=== PATIENT | male | born 1965 | race Caucasian/White ===

== ENCOUNTER 2023-02-20 10:39 | Outpatient (AMB) | payer OTHER, SELFPAY ==
[2023-02-20 10:45] VITALS: BP 132/70; PULSE 92; O2SAT 98; BMI 27.5
--- NOTE | 2023-02-20 10:45 | MHC.OFFVIS ---
Intake Vital Signs 02/20/23 10:45 Height 5 ft 9 in Weight 186 lb BMI 27.5 BP 132/70 Blood Pressure Location Lt brachial Position Sitting Pulse 92 Pulse Source Pulse Oximeter Pulse Oximetry (%) 98 Oxygen Delivery Method Room Air Comment 2 Liters Oxygen Intake Visit Reasons: Pulmonary nodule Inspector Returned Materials Required: No Allergies nicotine Adverse Reaction (Severe, Verified 02/20/23 10:50) Rash Penicillins Adverse Reaction (Severe, Verified 02/20/23 10:50) Rash HPI HPI Comments History of Present Illness Details The patient is here for pulmonary evaluation. The patient is a 57-year-old gentleman with known emphysema COPD chronic respiratory failure on oxygen who is currently at a rehabilitation facility here at [place]. Apparently she was evaluated at [facility] and was treated there for many months. Normal recently developed another COPD exacerbation and respiratory infection and was evaluated at [facility]. January 31 he did undergo a chest x-ray demonstrating some lucencies in a left-sided pulmonary nodule measuring 1.7 cm in size. Therefore he did undergo a CT scan of the chest on January 31 2023. I personally reviewed ass the images. It demonstrated a 1.1 x 8 mm spiculated nodule in the left side concerning for malignant process. Patient also has extensive emphysema. The patient needs to undergo a PET scan and PFTs. [facility] Medical History (Updated 02/20/23 @ 20:27 by Armin Nagy MD) Chronic respiratory failure COPD (chronic obstructive pulmonary disease) Emphysema lung Pulmonary nodule Social History (Updated 02/20/23 @ 11:18 by MIREYA Jean Baptiste) Patient Tobacco Use Status: Current everyday Tobacco user Tobacco use type: Cigarette Review of Systems Const Reports fatigue and Denies fever(s) Eyes Denies change in vision Card Denies chest pain and Reports dyspnea on exertion Resp Reports cough, Denies hemoptysis, Reports dyspnea on exertion and Reports wheezing GI Reports no additional complaints Musc Reports no additional complaints Skin/Breast Denies rash Neuro Reports no additional complaints Endo Reports fatigue Panchito/Lymph Denies easy bleeding Aller/Immun Reports wheezing Physical Exam Vital Signs: Last Vital Signs Pulse 92 02/20/23 10:45 BP 132/70 02/20/23 10:45 Pulse Ox 98 02/20/23 10:45 Oxygen Delivery Method Room Air 02/20/23 10:45 BMI result Body Mass Index 27.5 Const General: comfortable and tired appearing HEENT Head: Yes normocephalic Neck Neck: Yes supple Chest Chest palpation & inspection: normal inspection of the chest Resp Effort & Inspection: normal respiratory effort and prolonged expiratory phase Auscultation: diminished lung sounds Cardio Rate: regular rate Rhythm: regular rhythm Heart sounds: S1 normal heart sound present and S2 normal heart sound present GI Palpation (GI): Soft to palpation Skin General skin exam: no rashes or lesions noted Extrem General: No clubbing Results Reviewed Results Reviewed: Assessment & Plan Assessment & Plan (1) Pulmonary nodule: Code(s): R91.1 - Solitary pulmonary nodule (2) Emphysema lung: Code(s): J43.9 - Emphysema, unspecified Qualifiers: Emphysema type: centrilobular Qualified Code(s): J43.2 - Centrilobular emphysema (3) COPD (chronic obstructive pulmonary disease): Code(s): J44.9 - Chronic obstructive pulmonary disease, unspecified Qualifiers: COPD type: emphysema Emphysema type: centrilobular Qualified Code(s): J43.2 - Centrilobular emphysema (4) Chronic respiratory failure: Code(s): J96.10 - Chronic respiratory failure, unspecified whether with hypoxia or hypercapnia Qualifiers: Respiratory failure complication: hypoxia Qualified Code(s): J96.11 - Chronic respiratory failure with hypoxia Plan PET scan to assess concerning nodule PFTs continue oxygen supplementation continue respiratory therapy F/U 4-6 weeks Orders: Orders PET CT fusion skull to thigh Today R91.1 - Solitary pulmonary nodule PFT pulmonary function test Today R91.1 - Solitary pulmonary nodule Coding Level of Care Code New Pt Level 5 (45384) Diagnoses Pulmonary nodule R91.1 Emphysema lung J43.2 Emphysema type: centrilobular COPD (chronic obstructive pulmonary disease) J43.2 COPD type: emphysema Emphysema type: centrilobular Chronic respiratory failure J96.11 Respiratory failure complication: hypoxia Time Spent (min) 60
== END 2023-02-20 10:57 | disposition home or self-care (01) ==
PROVIDERS: PCP Emergency Medicine; Visit Provider Hospitalist
DX: R91.1 Solitary pulmonary nodule (principal); J43.2 Centrilobular emphysema; J96.11 Chronic respiratory failure with hypoxia
CPT/HCPCS: 99205

== ENCOUNTER → 2023-02-20 10:39 | Outpatient (BNVA) | payer OTHER, SELFPAY | PROVIDERS: PCP Emergency Medicine; Visit Provider Hospitalist | DX: R91.1 Solitary pulmonary nodule (principal); J43.2 Centrilobular emphysema; J96.11 Chronic respiratory failure with hypoxia | CPT/HCPCS: 99202 ==

== ENCOUNTER 2023-05-20 13:11 | Outpatient (AMB) | payer OTHER, SELFPAY ==
[2023-05-20 13:23] VITALS: PULSE 89; O2SAT 96; BMI 27.4
--- NOTE | 2023-05-20 13:23 | A.OFFVIS_ITS ---
Intake Vital Signs 05/20/23 13:23 Height 5 ft 9 in Weight 185 lb 10.067 oz BMI 27.4 Pulse 89 Pulse Source Pulse Oximeter Pulse Oximetry (%) 96 Oxygen Delivery Method Room Air Comment 3 Liters Oxygen([facility]) Intake Visit Reasons: Pulmonary Nodule Inspector And Unloader Required: No Allergies nicotine Adverse Reaction (Severe, Verified 05/20/23 13:25) Rash Penicillins Adverse Reaction (Severe, Verified 05/20/23 13:25) Rash HPI HPI Comments History of Present Illness Details The patient is a 57-year-old gentleman with known emphysema COPD chronic respiratory failure on oxygen who is currently at a rehabilitation facility here at [place]. Apparently she was evaluated at [facility] and was treated there for many months. Normal recently developed another COPD exacerbation and respiratory infection and was evaluated at [facility]. January 31 he did undergo a chest x-ray demonstrating some lucencies in a left-sided pulmonary nodule measuring 1.7 cm in size. Therefore he did undergo a CT scan of the chest on January 31 2023. I personally reviewed ass the images. It demonstrated a 1.1 x 8 mm spiculated nodule in the left side concerning for malignant process. Patient also has extensive emphysema. The patient needs to undergo a PET scan and PFTs. 05/20/2023 the patient is here for pulmo luisy follow-up visit. He has yet to get his PET scan. Scheduled for next week. In the meantime he went to [facility] with worsening abdominal discomfort. He does have a significant hernia. He also had worsening respiratory symptoms. Not responding very well to the Breo. Will go ahead and switch him to Trelegy inhaler that he can use daily. In addition to that I do believe that because of his chronic bronchitis responding he will respond well to azithromycin 3 times a week. I will request the starts on the azithromycin at the custodial. He will continue using his oximetry is. Unfortunately his oxygen tank is empty needs to make sure he gets on an oxygen tank once he arrives to the unit. The patient will have the PET scan. The PET scan is abnormal a him come in earlier to discuss the findings and further discuss interventions. [facility] Medical History (Updated 02/20/23 @ 20:27 by Armin Nagy MD) Chronic respiratory failure COPD (chronic obstructive pulmonary disease) Emphysema lung Pulmonary nodule (Updated 02/20/23 @ 11:18 by MIREYA Jean Baptiste) Patient Tobacco Use Status: Current everyday Tobacco user Tobacco use type: Cigarette Review of Systems Const Reports fatigue and Denies fever(s) Eyes Denies change in vision Card Denies chest pain and Reports dyspnea on exertion Resp Reports cough, Denies hemoptysis, Reports dyspnea on exertion and Reports wheezing GI Reports no additional complaints Musc Reports no additional complaints Skin/Breast Denies rash Neuro Reports no additional complaints Endo Reports fatigue Panchito/Lymph Denies easy bleeding Aller/Immun Reports wheezing Physical Exam Vital Signs: Last Vital Signs Pulse 89 05/20/23 13:23 Pulse Ox 96 05/20/23 13:23 Oxygen Delivery Method Room Air 05/20/23 13:23 BMI result Body Mass Index 27.4 Const General: comfortable and tired appearing HEENT Head: Yes normocephalic Neck Neck: Yes supple Chest Chest palpation & inspection: normal inspection of the chest Resp Effort & Inspection: normal respiratory effort and prolonged expiratory phase Auscultation: rhonchi and diminished lung sounds Cardio Rate: regular rate Rhythm: regular rhythm Heart sounds: S1 normal heart sound present and S2 normal heart sound present GI Palpation (GI): Soft to palpation Skin General skin exam: no rashes or lesions noted Extrem General: No clubbing Assessment & Plan Assessment & Plan (1) Pulmonary nodule: Code(s): R91.1 - Solitary pulmonary nodule (2) Emphysema lung: Code(s): J43.9 - Emphysema, unspecified Qualifiers: Emphysema type: centrilobular Qualified Code(s): J43.2 - Centrilobular emphysema (3) COPD (chronic obstructive pulmonary disease): Code(s): J44.9 - Chronic obstructive pulmonary disease, unspecified Qualifiers: COPD type: emphysema Emphysema type: centrilobular Qualified Code(s): J43.2 - Centrilobular emphysema (4) Chronic respiratory failure: Code(s): J96.10 - Chronic respiratory failure, unspecified whether with hypoxia or hypercapnia Qualifiers: Respiratory failure complication: hypoxia Qualified Code(s): J96.11 - Chronic respiratory failure with hypoxia Plan PET scan to assess concerning nodule, schedule for May 29 continue oxygen supplementation 3L/min start Trelegy start Azithromycin 3 times a week (Friday, Friday, Friday Duoneb QID as needed F/U 3-4 months Coding Level of Care Code Est Pt Level 4 (52087) Diagnoses Pulmonary nodule R91.1 Centrilobular emphysema J43.2 Emphysema type: centrilobular Centrilobular emphysema J43.2 COPD type: emphysema Emphysema type: centrilobular Chronic respiratory failure with hypoxia J96.11 Respiratory failure complication: hypoxia Time Spent (min) 16
== END 2023-05-20 13:47 | disposition home or self-care (01) ==
PROVIDERS: PCP Emergency Medicine; Visit Provider Hospitalist
DX: R91.1 Solitary pulmonary nodule (principal); J43.2 Centrilobular emphysema; J96.11 Chronic respiratory failure with hypoxia
CPT/HCPCS: 99214

== ENCOUNTER → 2023-05-20 13:11 | Outpatient (BNVA) | payer OTHER, SELFPAY | PROVIDERS: PCP Emergency Medicine; Visit Provider Hospitalist | DX: J43.2 Centrilobular emphysema (principal); J96.11 Chronic respiratory failure with hypoxia; R91.1 Solitary pulmonary nodule | CPT/HCPCS: 99212 ==

== ENCOUNTER 2023-10-24 10:40 | Outpatient (AMB) | payer OTHER, SELFPAY ==
--- NOTE | 2023-10-24 10:48 | A.OFFVIS_ITS ---
Vital Signs 10/24/23 10:50 Height 5 ft 9 in Weight 240 lb BMI 35.4 Pulse 92 Pulse Source Pulse Oximeter Pulse Oximetry (%) 100 Oxygen Delivery Method Room Air Comment 4 Liters Oxygen([facility]) Intake Visit Reasons: Pulmonary Nodule Packer Insulation Required: No Allergies nicotine Adverse Reaction (Severe, Verified 10/24/23 10:52) Rash Penicillins Adverse Reaction (Severe, Verified 10/24/23 10:52) Rash HPI Comments Details: The patient is a 58-year-old gentleman with known emphysema COPD chronic respiratory failure on oxygen who is currently at a rehabilitation facility here at [place]. Apparently she was evaluated at [facility] and was treated there for many months. Normal recently developed another COPD exacerbation and respiratory infection and was evaluated at [facility]. January 31 he did undergo a chest x-ray demonstrating some lucencies in a left-sided pulmonary nodule measuring 1.7 cm in size. Therefore he did undergo a CT scan of the chest on January 31 2023. I personally reviewed ass the images. It demonstrated a 1.1 x 8 mm spiculated nodule in the left side concerning for malignant process. Patient also has extensive emphysema. The patient needs to undergo a PET scan and PFTs. 05/20/2023 the patient is here for pulmonary follow-up visit. He has yet to get his PET scan. Scheduled for next week. In the meantime he went to [facility] with worsening abdominal discomfort. He does have a significant hernia. He also had worsening respiratory symptoms. Not responding very well to the Breo. Will go ahead and switch him to Trelegy inhaler that he can use daily. In addition to that I do believe that because of his chronic bronchitis responding he will respond well to azithromycin 3 times a week. I will request the starts on the [facility]ithromycin at the [facility]. He will continue using his oximetry is. Unfortunately his oxygen tank is empty needs to make sure he gets on an oxygen tank once he arrives to the unit. The patient will have the PET scan. The PET scan is abnormal a him come in earlier to discuss the findings and further discuss interventions. 10/24/2023 the patient is here for pulmonary follow-up visit. He did apparently undergo a PET scan back in May 2023 at [facility] although we never received the report. It did demonstrate the left upper lobe nodular density was PET avid. Subsequently after that he was referred to [facility] pulmonary. He was briefly evaluated. Now he is back here. As far as his respiratory status he is using the oxygen currently on 3-4 L of oxygen continuously. The patient also has been using the Trelegy inhaler with good effect. He continues on the azithromycin for the chronic bronchitis 3 times a week. We did talk about the abnormal PET scan with the nodular density. Does not show any other activity of any concerns start area. The area is concerning in appearance for malignancy. We talked about the diagnostic interventions such as biopsy. The patient is reluctant to have anything done where he is semi awake or weight. He rather be under anesthesia. The nodular density is peripheral. I do not believe that bronchoscopy will provide him with the adequate diagnostic accuracy to undergo the procedure specially few months after the PET scan itself. Therefore, the best option would be a CT-guided biopsy versus a surgical biopsy. The patient is reluctant again on any tele CT-guided biopsy that he be awake. Therefore will go ahead and request PFTs and will refer him to thoracic surgery for a wedge biopsy. [facility] Medical History (Updated 02/20/23 @ 20:27 by Armin Nagy MD) Chronic respiratory failure COPD (chronic obstructive pulmonary disease) Emphysema lung Pulmonary nodule Social History (Updated 02/20/23 @ 11:18 by MIREYA Jean Baptiste) Patient Tobacco Use Status: Current everyday Tobacco user Tobacco use type: Cigarette Review of Systems Const Reports fatigue and Denies fever(s) Eyes Denies change in vision Card Denies chest pain and Reports dyspnea on exertion Resp Reports cough, Denies hemoptysis, Reports dyspnea on exertion and Reports wheezing GI Reports no additional complaints Musc Reports no additional complaints Skin/Breast Denies rash Neuro Reports no additional complaints Endo Reports fatigue Panchito/Lymph Denies easy bleeding Aller/Immun Reports wheezing Physical Exam Vital Signs: Last Vital Signs Pulse 92 10/24/23 10:50 Pulse Ox 100 10/24/23 10:50 Oxygen Delivery Method Room Air 10/24/23 10:50 BMI result Body Mass Index 35.4 Const General: comfortable and tired appearing HEENT Head: Yes normocephalic Neck Neck: Yes supple Chest Chest palpation & inspection: normal inspection of the chest Resp Effort & Inspection: normal respiratory effort and prolonged expiratory phase Auscultation: no rhonchi and diminished lung sounds Cardio Rate: regular rate Rhythm: regular rhythm Heart sounds: S1 normal heart sound present and S2 normal heart sound present GI Palpation (GI): Soft to palpation Skin General skin exam: no rashes or lesions noted Extrem General: No clubbing Assessment & Plan Assessment & Plan (1) Pulmonary nodule: Code(s): R91.1 - Solitary pulmonary nodule Category: Medical (2) Emphysema lung: Code(s): J43.9 - Emphysema, unspecified Category: Medical Qualifiers: Emphysema type: centrilobular Qualified Code(s): J43.2 - Centrilobular emphysema (3) COPD (chronic obstructive pulmonary disease): Code(s): J44.9 - Chronic obstructive pulmonary disease, unspecified Category: Medical Qualifiers: COPD type: emphysema Emphysema type: centrilobular Qualified Code(s): J43.2 - Centrilobular emphysema (4) Chronic respiratory failure: Code(s): J96.10 - Chronic respiratory failure, unspecified whether with hypoxia or hypercapnia Category: Medical Qualifiers: Respiratory failure complication: hypoxia Qualified Code(s): J96.11 - Chronic respiratory failure with hypoxia Plan Will need to further assess PET avid nodular density. We discussed undergoing a CT guided biopsy, but he does not want to be awake. Best other option would be a wedge biopsy under anesthesia. Bronchoscopy is less likely to reach the area with good enough accuracy. I will request urgent PFTs and we will refer him to Thoracic surgery for a biopsy. continue oxygen supplementation 3L/min continue Trelegy Azithromycin 3 times a week (Friday, Friday, Friday Duoneb QID as needed Thoracic surgery referral PFTs urgent F/U 2 months Orders: Orders PFT pulmonary function test 10/24/23 J96.11 - Chronic respiratory failure with hypoxia, R91.1 - Solitary pulmonary nodule Referrals Thoracic Surgery Referral J96.11 - Chronic respiratory failure with hypoxia, R91.1 - Solitary pulmonary nodule Coding Level of Care Code Est Pt Level 5 (59088) Diagnoses Pulmonary nodule R91.1 Centrilobular emphysema J43.2 Emphysema type: centrilobular Centrilobular emphysema J43.2 COPD type: emphysema Emphysema type: centrilobular Chronic respiratory failure with hypoxia J96.11 Respiratory failure complication: hypoxia Time Spent (min) 45
[2023-10-24 10:50] VITALS: PULSE 92; O2SAT 100; BMI 35.4
== END 2023-10-24 11:48 | disposition home or self-care (01) ==
PROVIDERS: PCP Emergency Medicine; Visit Provider Hospitalist
DX: R91.1 Solitary pulmonary nodule (principal); J43.2 Centrilobular emphysema; J96.11 Chronic respiratory failure with hypoxia
CPT/HCPCS: 99215

== ENCOUNTER → 2023-10-24 10:40 | Outpatient (BNVA) | payer OTHER, SELFPAY | PROVIDERS: PCP Emergency Medicine; Visit Provider Hospitalist | DX: J43.2 Centrilobular emphysema (principal); J96.11 Chronic respiratory failure with hypoxia; R91.1 Solitary pulmonary nodule; Z79.899 Other long term (current) drug therapy; Z99.81 Dependence on supplemental oxygen | CPT/HCPCS: 99212 ==

== ENCOUNTER 2023-10-29 10:52 | Outpatient (REF) | payer OTHER, SELFPAY ==
--- NOTE | 2023-10-29 15:30 | PFT_ITS ---
Flows: FEV1: 18 % of predicted at 0.65 L FVC: 45 % of predicted at 2.04 L FEV1/FVC: 32 % Bronchodilator response: Absent Volumes: Patient unable to perform lung volume maneuvers. Diffusion capacity: Severely decreased, adjusts to being moderately decreased after correction for alveolar ventilation. Impression: Very severe obstructive ventilatory defect with no bronchodilator response. Patient was unable to perform lung volume maneuvers. Decreased diffusion capacity suggests emphysema. MTDD
[2023-10-29 15:39] VITALS: PULSE 120; RESP 16; O2SAT 99
== END 2023-10-29 10:53 | disposition home or self-care (01) ==
LOC: HO.RESP 10:52
PROVIDERS: Visit Provider Hospitalist
DX: R91.1 Solitary pulmonary nodule (principal); J96.11 Chronic respiratory failure with hypoxia
CPT/HCPCS: 94010; 94640; 94727; 94729

== ENCOUNTER → 2023-10-29 15:30 | Outpatient (BNV) | payer OTHER, SELFPAY | PROVIDERS: Visit Provider Internal Medicine Pulmonary Disease | DX: J96.11 Chronic respiratory failure with hypoxia (principal); R91.1 Solitary pulmonary nodule | CPT/HCPCS: 94060; 94729 ==

== ENCOUNTER 2023-11-03 09:34 | Outpatient (AMB) | payer OTHER, SELFPAY ==
--- NOTE | 2023-11-03 09:36 | MHC.OFFVIS ---
Vital Signs 11/03/23 09:44 Height 5 ft 9 in Weight 226 lb BMI 33.4 BP 119/65 Blood Pressure Location Rt brachial Position Sitting Pulse 97 Intake Visit Reasons: Pulmonary nodule Intake Note: Patient referred by his cigarette carton sealer Dr. Nagy for a possible Lt upper lobe wedge bx. Patient c/o: shortness of breath, wheezing PFT: 10-29-2023. [employer] Required: No Accompanied by: Fiordaliza FRANCISCA [facility] Allergies nicotine Adverse Reaction (Severe, Verified 11/03/23 09:36) Rash Penicillins Adverse Reaction (Severe, Verified 11/03/23 09:36) Rash HPI Comments Details: Patient was referred by Dr. Nagy/pulmonology, and was also recently presented at the multi-disciplinary lung conference. Patient has a very significant smoking history since age 14 were at 1 point in the smoking 3 packs per day. He discontinued smoking approximately a year and a half ago. Patient has advanced COPD.Aside from a smoker's cough, he denies any hemoptysis, chest pain, or significant wheezing. He has lost approximately 20 lb 0 oz of weight over the last several months time which was planned. His energy and appetite are stable. Patient had right chest surgery in 1984 for what appears to obtain a benign lung lesion. Chart was reviewed and patient evaluated. Patient has a plethora of medical problems. He presents today in a wheelchair wearing hospital gown accompanied by his plug overwrap machine tender at his extended care facility. He is apparently homeless [facility] Medical History Housing insecurity Bipolar disorder PTSD (post-traumatic stress disorder) Atrial fibrillation Chronic respiratory failure COPD (chronic obstructive pulmonary disease) Emphysema lung Pulmonary nodule Nicotine dependence, cigarettes, uncomplicated Surgical History History of shoulder surgery History of inguinal hernia repair Family History Father Myocardial infarction, Onset Age: 90 Mother Myocardial infarction, Onset Age: 63 Sister Sepsis Social History Patient Tobacco Use Status: Current everyday Tobacco user Tobacco use type: Cigarette Physical Exam Vital Signs: Last Vital Signs Pulse 97 11/03/23 09:44 BP 119/65 11/03/23 09:44 BMI result Body Mass Index 33.4 Neck Other: No cervical periclavicular axillary adenopathy appreciated. Chest Other: Chest breath sounds bilaterally consistent with COPD. Right thoracotomy scar GI Other: Abdomen very corpulent, soft, benign Assessment & Plan Assessment & Plan (1) Pulmonary nodule: Code(s): R91.1 - Solitary pulmonary nodule Category: Surgical (2) COPD (chronic obstructive pulmonary disease): Code(s): J44.9 - Chronic obstructive pulmonary disease, unspecified Category: Medical Qualifiers: COPD type: emphysema Emphysema type: centrilobular Qualified Code(s): J43.2 - Centrilobular emphysema (3) Chronic respiratory failure: Code(s): J96.10 - Chronic respiratory failure, unspecified whether with hypoxia or hypercapnia Category: Medical Qualifiers: Respiratory failure complication: hypoxia Qualified Code(s): J96.11 - Chronic respiratory failure with hypoxia (4) Nicotine dependence, cigarettes, uncomplicated: Code(s): F17.210 - Nicotine dependence, cigarettes, uncomplicated Category: Medical (5) Emphysema lung: Code(s): J43.9 - Emphysema, unspecified Category: Medical Qualifiers: Emphysema type: centrilobular Qualified Code(s): J43.2 - Centrilobular emphysema Plan I discussed with the patient at length the recommendations of the multidisciplinary conference which recommends thorascopic biopsy of his suspicious left lower lobe lung mass/process. Risks, benefits, alternatives of the procedure reviewed with the patient and included but not limited to bleeding, infection, numbness, pain, scarring, non diagnosis. The present time, patient does not wished to proceed with any surgical interventions and would like to think his options over. He has been given my card and should he wish to further discuss this procedure or proceed, he has been instructed to call the office will otherwise follow-up p.r.n.. All questions answered. Coding Level of Care Code New Pt Level 4 (74195) Diagnoses Pulmonary nodule R91.1 Centrilobular emphysema J43.2 COPD type: emphysema Emphysema type: centrilobular Chronic respiratory failure with hypoxia J96.11 Respiratory failure complication: hypoxia Nicotine dependence, cigarettes, uncomplicated F17.210 Centrilobular emphysema J43.2 Emphysema type: centrilobular
[2023-11-03 09:44] VITALS: BP 119/65; PULSE 97; BMI 33.4
== END 2023-11-03 09:59 | disposition home or self-care (01) ==
PROVIDERS: PCP Emergency Medicine; Referring Provider Hospitalist; Visit Provider Surgery
DX: R91.1 Solitary pulmonary nodule (principal); J43.2 Centrilobular emphysema; J96.11 Chronic respiratory failure with hypoxia; F17.210 Nicotine dependence, cigarettes, uncomplicated
CPT/HCPCS: 99204

== ENCOUNTER → 2023-11-03 09:34 | Outpatient (BNVA) | payer OTHER, SELFPAY | PROVIDERS: PCP Emergency Medicine; Referring Provider Hospitalist; Visit Provider Surgery | DX: R91.1 Solitary pulmonary nodule (principal); J43.2 Centrilobular emphysema; J96.11 Chronic respiratory failure with hypoxia; F17.210 Nicotine dependence, cigarettes, uncomplicated; Z59.01 Sheltered homelessness | CPT/HCPCS: 99202 ==